=== PATIENT | male | born 1955 | race Caucasian/White ===

== ENCOUNTER 2022-04-16 14:06 | Emergency (ER) | payer OTHER ==
[~2022-04-16] VITALS: Ht 188 cm; Wt 93.0 kg
[~2022-04-16 14:06] MED LIST: ACIDOPHILUS1 EAC3 PO; CALCIUM CIT 311 EAC7 PO; CARB200 PO; FISH OIL 1,2001 EAC7 PO; Hytrin2 MG PO; LEVE500 PO; LORA10ER PO; MIRALAX17 GM PO; Norco 5-325 Ta1 EACH PO; VITAMIN D325 MC3
== END 2022-04-16 15:53 | disposition home or self-care (01) ==
LOC: ER 14:06
DX: R23.4 Changes in skin texture (principal); Z79.899 Other long term (current) drug therapy
CPT/HCPCS: 99282

== ENCOUNTER 2022-06-28 07:58 | Day surgery (SDC) | payer OTHER ==
[~2022-06-28] VITALS: Ht 188 cm; Wt 94.1 kg
[2022-06-28] MEDS ORDERED: LEVE500 PO (08:15)
[2022-06-28] MEDS ORDERED: CARBATROL300 M1 PO (08:17)
--- NOTE | 2022-06-28 08:49 | NUR ---
Ambulatory in Day Surgery History, Chart, Medications and Allergies reviewed before start of procedure. Pre-Op teaching done. Pt verbalizes understanding. Patient States Post-Procedure ride home has been arranged.
[2022-06-28 09:15] LABS: Bun/Creatinine Ratio 9.8 (12.0-20.0); Calcium, Blood 8.4 mg/dL (8.5-10.1); Creatinine, Blood 0.61 mg/dL (0.60-1.20); Potassium, Blood 3.9 mmol/L (3.5-5.5)
--- NOTE | 2022-06-28 09:30 | NUR ---
06/28/22 0930 Lucretia Barrett PT TO OR [address] JACQUES'S SEDATION RECORD.
--- NOTE | 2022-06-28 12:26 | NUR ---
1105 RECIEVED PT FROM PACU,AWAKE. MADNA PANTS AND GAUZE AT SURGERY SITE, GAUZE WITH RED DRAINAGE ON IT. VSS, DENIES NAUSEA. 1115 UP TO BR VOIDE WITHOUT DIFFICULTY, STEADY ON FEET. NEW PAERI PAD PLACED. BUTTOCKS INCISION D AND INTACT. 1120 ARACELI PO FLUIDAS AND SNACKS 1145 DC INSTRUCTS REVIEWED.
== END 2022-06-28 23:18 | disposition home or self-care (01) ==
LOC: ORSCMMR 07:58 → ORD 09:15 → ORSCMMR 09:15
PROVIDERS: Surgery
PROC: 0DJD8ZZ Inspection of Lower Intestinal Tract, Via Natural or Artificial Opening Endoscopic (ICD-10-PCS; principal; 2022-06-28 09:15)
PROC: 0JB90ZX Excision of Buttock Subcutaneous Tissue and Fascia, Open Approach, Diagnostic (ICD-10-PCS; principal; 2022-06-28 09:15)
DX: L72.3 Sebaceous cyst (principal); Z12.11 Encounter for screening for malignant neoplasm of colon; Z86.010 Personal history of colon polyps; G47.33 Obstructive sleep apnea (adult) (pediatric); Z87.891 Personal history of nicotine dependence; Z86.73 Personal history of transient ischemic attack (TIA), and cerebral infarction without residual deficits; G40.909 Epilepsy, unspecified, not intractable, without status epilepticus; Z79.899 Other long term (current) drug therapy
CPT/HCPCS: 27043; G0105; 80048; 88304; A9270; J0690; J1100; J1885; J2250; J2405; J2704; J2795; J3010; J7120